=== PATIENT | female | born 1945 | race Caucasian/White ===

== ENCOUNTER 2016-05-08 05:07 | Outpatient (RCR) | payer MEDICARE ==
[~2016-05-08] VITALS: Ht 30.5 cm; Wt 0.5 kg
[2016-05-08] MEDS ORDERED: Succinylcholine 20mg/ml 10ml vial ONE (05:08)
[2016-05-08] MEDS ORDERED: NS 550ML IV ONE (05:08)
[2016-05-08] MEDS ORDERED: Midazolam 2mg/2ml Inj ONE (05:08)
[2016-05-08] MEDS ORDERED: Ketorolac 60mg Inj ONE (05:08)
[2016-05-08] MEDS ORDERED: Methohexital Sodium Syr 100mg/10ml IVP ONE (05:08)
== END 2016-05-14 | disposition home or self-care (01) ==
LOC: ECT 05:07
DX: F31.5 Bipolar disorder, current episode depressed, severe, with psychotic features (principal); I10 Essential (primary) hypertension; M71.9 Bursopathy, unspecified; Z90.49 Acquired absence of other specified parts of digestive tract; Z85.820 Personal history of malignant melanoma of skin
CPT/HCPCS: 90870; J0330; J2250; J7040

== ENCOUNTER 2016-06-05 10:09 | Outpatient (RCR) | payer MEDICARE ==
[~2016-06-05] VITALS: Ht 165.1 cm; Wt 95.3 kg
[2016-06-05] MEDS ORDERED: Midazolam 2mg/2ml Inj ONE (10:10)
[2016-06-05] MEDS ORDERED: Ketorolac 60mg Inj ONE (10:10)
[2016-06-05] MEDS ORDERED: Succinylcholine 20mg/ml 10ml vial ONE (10:10)
[2016-06-05] MEDS ORDERED: Methohexital Sodium Syr 100mg/10ml IVP ONE (10:10)
[2016-06-05] MEDS ORDERED: NS 550ML IV ONE (10:10)
== END 2016-06-11 | disposition home or self-care (01) ==
LOC: ECT 10:09
DX: F31.5 Bipolar disorder, current episode depressed, severe, with psychotic features (principal)
CPT/HCPCS: 90870; J0330; J2250; J7040

== ENCOUNTER 2016-07-03 05:03 | Outpatient (RCR) | payer MEDICARE ==
[~2016-07-03] VITALS: Ht 165.1 cm; Wt 95.3 kg
[2016-07-03] MEDS ORDERED: NS 550ML IV ONE (05:04)
[2016-07-03] MEDS ORDERED: Succinylcholine 20mg/ml 10ml vial ONE (05:04)
[2016-07-03] MEDS ORDERED: Ketorolac 60mg Inj ONE (05:04)
[2016-07-03] MEDS ORDERED: Midazolam 2mg/2ml Inj ONE (05:04)
[2016-07-03] MEDS ORDERED: Methohexital Sodium Syr 100mg/10ml IVP ONE (05:04)
[2016-07-03] MEDS ORDERED: Atropine Sulfate 0.4mg/ml inj IVP PRN (08:38)
== END 2016-07-12 | disposition home or self-care (01) ==
LOC: ECT 05:03
DX: F31.5 Bipolar disorder, current episode depressed, severe, with psychotic features (principal)
CPT/HCPCS: 90870; J0330; J2250; J7040

== ENCOUNTER 2016-08-02 05:40 | Outpatient (RCR) | payer MEDICARE ==
[~2016-08-02] VITALS: Ht 165.1 cm; Wt 95.3 kg
[2016-08-02] MEDS ORDERED: Methohexital Sodium Syr 100mg/10ml IVP ONE (05:41)
[2016-08-02] MEDS ORDERED: Ketorolac 60mg Inj ONE (05:41)
[2016-08-02] MEDS ORDERED: NS 550ML IV ONE (05:41)
[2016-08-02] MEDS ORDERED: Midazolam 2mg/2ml Inj ONE (05:41)
[2016-08-02] MEDS ORDERED: Succinylcholine 20mg/ml 10ml vial ONE (05:41)
== END 2016-08-11 | disposition home or self-care (01) ==
LOC: ECT 05:40
DX: F31.5 Bipolar disorder, current episode depressed, severe, with psychotic features (principal)
CPT/HCPCS: 90870; J0330; J2250; J7040

== ENCOUNTER 2016-08-28 04:47 | Outpatient (RCR) | payer MEDICARE ==
[~2016-08-28] VITALS: Ht 30.5 cm; Wt 0.5 kg
[2016-08-28] MEDS ORDERED: Ketorolac 60mg Inj ONE (04:48)
[2016-08-28] MEDS ORDERED: Midazolam 2mg/2ml Inj ONE (04:48)
[2016-08-28] MEDS ORDERED: NS 550ML IV ONE (04:48)
[2016-08-28] MEDS ORDERED: Methohexital Sodium Syr 100mg/10ml IVP ONE (04:48)
[2016-08-28] MEDS ORDERED: Succinylcholine 20mg/ml 10ml vial ONE (04:48)
== END 2016-09-11 | disposition home or self-care (01) ==
LOC: ECT 04:47
DX: F31.5 Bipolar disorder, current episode depressed, severe, with psychotic features (principal)
CPT/HCPCS: 90870; J0330; J2250; J7040

== ENCOUNTER 2016-09-25 05:05 | Outpatient (RCR) | payer MEDICARE ==
[~2016-09-25] VITALS: Ht 165.1 cm; Wt 95.3 kg
[2016-09-25] MEDS ORDERED: Succinylcholine 20mg/ml 10ml vial ONE (05:06)
[2016-09-25] MEDS ORDERED: Ketorolac 60mg Inj ONE (05:06)
[2016-09-25] MEDS ORDERED: Methohexital Sodium Syr 100mg/10ml IVP ONE (05:06)
[2016-09-25] MEDS ORDERED: NS 550ML IV ONE (05:06)
[2016-09-25] MEDS ORDERED: Midazolam 2mg/2ml Inj ONE (05:06)
== END 2016-10-11 | disposition home or self-care (01) ==
LOC: ECT 05:05
DX: F31.5 Bipolar disorder, current episode depressed, severe, with psychotic features (principal)
CPT/HCPCS: 90870; J0330; J2250; J7040

== ENCOUNTER 2016-10-30 07:13 | Outpatient (RCR) | payer MEDICARE ==
[~2016-10-30] VITALS: Ht 165.1 cm; Wt 95.3 kg
[2016-10-30] MEDS ORDERED: Ketorolac 60mg Inj ONE (07:14)
[2016-10-30] MEDS ORDERED: Methohexital Sodium Syr 100mg/10ml IVP ONE (07:14)
[2016-10-30] MEDS ORDERED: Midazolam 2mg/2ml Inj ONE (07:14)
[2016-10-30] MEDS ORDERED: Succinylcholine 20mg/ml 10ml vial ONE (07:14)
[2016-10-30] MEDS ORDERED: NS 550ML IV ONE (07:14)
== END 2016-11-11 | disposition home or self-care (01) ==
LOC: ECT 07:13
DX: F31.5 Bipolar disorder, current episode depressed, severe, with psychotic features (principal)
CPT/HCPCS: 90870; J0330; J2250; J7040

== ENCOUNTER 2020-04-21 05:06 | Outpatient (RCR) | payer MEDICARE ==
[~2020-04-21] VITALS: Ht 165.1 cm; Wt 86.2 kg
[2020-04-21] VITALS (8 sets, daily range): BP systolic 132–159; BP diastolic 47–64
[2020-04-21] MEDS ORDERED: Methohexita Syr 100mg/10ml IVP ONE (05:07)
[2020-04-21] MEDS ORDERED: NS 500ML ONE (05:07)
[2020-04-21] MEDS ORDERED: Succinylcholine 20mg/ml 10ml vial ONE (05:07)
== END 2020-05-14 | disposition home or self-care (01) ==
LOC: ECT 05:06
DX: F31.4 Bipolar disorder, current episode depressed, severe, without psychotic features (principal); I48.92 Unspecified atrial flutter; I11.9 Hypertensive heart disease without heart failure; I25.10 Atherosclerotic heart disease of native coronary artery without angina pectoris; Z86.73 Personal history of transient ischemic attack (TIA), and cerebral infarction without residual deficits
CPT/HCPCS: 90870; J0330; J7040

== ENCOUNTER 2020-05-19 05:42 | Outpatient (RCR) | payer MEDICARE ==
[2020-05-19] VITALS (7 sets, daily range): BP systolic 116–149; BP diastolic 58–79
[~2020-05-19] VITALS: Ht 30.5 cm; Wt 0.5 kg
[2020-05-19] MEDS ORDERED: Methohexita Syr 100mg/10ml IVP ONE (05:43)
[2020-05-19] MEDS ORDERED: Succinylcholine 20mg/ml 10ml vial ONE (05:43)
[2020-06-09] VITALS (7 sets, daily range): BP systolic 144–164; BP diastolic 63–71
[2020-06-09] MEDS ORDERED: Methohexita Syr 100mg/10ml IVP ONE (06:00)
[2020-06-09] MEDS ORDERED: Succinylcholine 20mg/ml 10ml vial ONE (06:00)
== END 2020-06-11 | disposition home or self-care (01) ==
LOC: ECT 05:42
DX: F31.4 Bipolar disorder, current episode depressed, severe, without psychotic features (principal); I48.92 Unspecified atrial flutter; I11.9 Hypertensive heart disease without heart failure; I25.10 Atherosclerotic heart disease of native coronary artery without angina pectoris; Z86.73 Personal history of transient ischemic attack (TIA), and cerebral infarction without residual deficits
CPT/HCPCS: 90870; J0330; J7040